=== PATIENT | female | born 1960 | race Caucasian/White ===

== ENCOUNTER 2019-04-23 15:33 | Outpatient (CLI) | payer OTHER ==
[2013-11-12 13:01] VITALS: BP 156/48
--- NOTE | 2019-04-23 17:16 | Diagnostic Imaging Report ---
PATIENT MR#: [id number] PATIENT PATIENT NAME: ROYCE CALDWELL DATE OF : 1960 REFERRING PHYSICIAN: PAMELA WHITEHEAD EXAM DATE: 04/23/2019 ACCESSION NUMBER: [id number] EXAM DESCRIPTION: FOOT 3 VIEWS OR MORE CLINICAL HISTORY: LATERAL SIDED LEFT FOOT PAIN COMPARISON: No study for comparison is available at the time of interpretation. TECHNIQUE: DX left foot, 3 views Osseous structures: There is a nondisplaced avulsion fracture of the proximal 5th metatarsal base. Po sterior calcaneal spur at the Achilles tendon insertion, which may indicate Achilles tendinosis. Plantar calcaneal spu r at the plantar fascia insertion, which may predispose to plantar fasciitis. Joint spaces: The bones are well aligned. No articular surface abnormality is noted. Soft tissues: There is soft tissue swelling adjacent to the 5th metatarsal base. IMPRESSION: 1. Nondisplaced avulsion-type fracture at the 5th metatarsal base. 2. Posterior calcaneal spur at the Achilles tendon insertion, which may indicate Achilles tendinosis. 3. Plantar calcaneal spur at the plantar fascia insertion, which may predispose to plantar fasciitis. Read by: Dr. Armando Ernst Transcribed by: Armando Ernst Transcribed Date: 04/23/2019 5:06:38 PM Electronically signed by: Dr. Armando Ernst Date signed: 04/23/2019 5:16:23 PM
== END 2019-04-23 15:43 ==
LOC: RAD 15:33
PROVIDERS: ATTEND Podiatrist Foot & Ankle Surgery
DX: M79.672 Pain in left foot (principal)
CPT/HCPCS: 73630